=== PATIENT | male | born 1940 | race Caucasian/White ===

== ENCOUNTER 2018-02-04 06:24 | Day surgery (SDC) | payer MEDICARE, BC, SELFPAY ==
[2018-02-04 06:45] VITALS: BP 135/64; PULSE 65; RESP 16; TEMP 36.5; O2SAT 97
[2018-02-04] MEDS: Lidocaine 2% Pres-Free 5 ML VIAL 10 ML (07:31)
--- NOTE | 2018-02-04 07:52 | W.PM.DSUDISC ---
Discharge Plan Disposition Patient Disposition: HOME Condition: Improving Discharge Details Attending Provider: Armani Durham Primary Care Provider: Preston Gonzalez Home Meds and New Rx's Prescriptions: No Action No Known Home Meds RF: 0 Discharge Instructions Additional Instructions: Keep your right hand elevated above heart level as needed to help control pain and swelling. Exercise your thumb as comfort allows. Expect a small amount of bloody drainage on the gauze bandage. For showering tomorrow, cover your gauze bandage with a plastic bag and a rubber band about the wrist to keep it dry. On 02/06/18, you may remove all of your bandages and get your stitch and incision wet in the shower with soap and water. Gently pat the stitch dry and cover it with a bandaid. Resume normal activity as tolerated covering the wound with a glove if you are working in the dirt,or working with grease fo oil. Activity:: Activity as Tolerated Remove Dressings/Wound Care:: 48 hours Diet:: As Tolerated Discharge Orders Discharge Orders: Discharge Order (Routine); Ordered 02/04/18 Ordered By: Armani Durham
--- NOTE | 2018-02-04 08:00 | W.PM.DSUDISC ---
Discharge Plan Disposition Patient Disposition: HOME Condition: Improving Discharge Details Attending Provider: Armani Durham Primary Care Provider: Preston Gonzalez Home Meds and New Rx's Prescriptions: No Action No Known Home Meds RF: 0 Discharge Instructions Additional Instructions: Keep your right hand elevated above heart level as needed to help control pain and swelling. Exercise your thumb as comfort allows. Expect a small amount of bloody drainage on the gauze bandage. For showering tomorrow, cover your gauze bandage with a plastic bag and a rubber band about the wrist to keep it dry. On 02/06/18, you may remove all of your bandages and get your stitch and incision wet in the shower with soap and water. Gently pat the stitch dry and cover it with a bandaid. Resume normal activity as tolerated covering the wound with a glove if you are working in the dirt,or working with grease fo oil. Stand Alone Forms: Ines Alejandro (DSU) Activity:: Activity as Tolerated Remove Dressings/Wound Care:: 48 hours Diet:: As Tolerated Discharge Orders Discharge Orders: Discharge Order (Routine); Ordered 02/04/18 Ordered By: Armani Durham Discharge Data Discharge Date/Time-TO BE ENTERED AT DEPARTURE: 02/04/18 08:12 Discharge Comment: Home
--- NOTE | 2018-02-04 08:57 | ROE_ITS ---
REPORT OF OPERATIVE PROCEDURE DATE OF SURGERY February 04, 2018 PREOPERATIVE DIAGNOSIS Trigger thumb, right upper extremity. POSTOPERATIVE DIAGNOSIS Trigger thumb, right upper extremity. PROCEDURE Release A1 leo, right thumb. SURGEON Armani Durham M.D. OPERATIONS DIRECTOR Nurse. ANESTHETIC Anesthetic is 2% lidocaine plain. PREP ChloraPrep. 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 This has been disabling to him. He has had previous trigger thumb and carpal tunnel surgery on his left hand. I kelsey ve reviewed the planned operative procedure with the patient and his in the Day Surgery holding area. I marked his thumb with a marker. He understood and wished to proceed. DESCRIPTION OF PROCEDURE The patient was taken to the Operating Suite and his right upper extremity was prepped and draped in a sterile fashion with ChloraPrep. Time-out was instituted. Then, 2% lidocaine was used to create an anesthetic wheal over the proposed incision site over the flexor pollicis longus tendon near the MCP joint. After ensuring complete anesthesia to the tip of the thumb, I made a transverse incision, 1/4 inch in length. Using Loupe magnification, and blunt dissection, the FPL tendon was identified. The n eurovascular bundles were retracted to the radial and ulnar side of the FPL. A longitudinal slit was made in the A1 tendon sheath. This was elongated with Littler scissors. I then had the patient flex a nd extend his thumb, which he could do so fully without any triggering or catching. The wound was irr igated with sterile saline. The skin was closed with a single suture of E4-0 Ethilon in a horizontal mattress. The wound was dressed with Xeroform gauze, 4x4s, gauze and a 2-inch confirming gauze bandag e. The patient was taken to the Out Patient Recovery Room in satisfactory condition, tolerating the proc edure well.
== END 2018-02-04 08:12 | disposition home or self-care (01) ==
PROVIDERS: PCP Internal Medicine; Visit Provider Orthopaedic Surgery
PROC: (CPT 26055; principal; 2018-02-04 07:30)
DX: M65.311 Trigger thumb, right thumb (principal)
CPT/HCPCS: 26055

== ENCOUNTER → 2018-02-04 11:59 | Outpatient (BNVA) | payer MEDICARE, BC, SELFPAY ==
--- NOTE | 2018-03-23 11:10 | W.PM.DS.N ---
Discharge Plan Discharge Details Reason For Visit: SURGER Attending Provider: Armani Durham Primary Care Provider: Preston Gonzalez Home Meds and New Rx's Prescriptions: No Action No Known Home Meds RF: 0 PFSH Surgical History Open Carpal Tunnel release (04/19/15) Trigger Finger release (04/19/15)
--- NOTE | 2018-03-24 08:46 | PDOC.DSDIS_ITS ---
Discharge Plan Discharge Details Reason For Visit: SURGER Attending Provider: Armani Durham Primary Care Provider: Preston Gonzalez Home Meds and New Rx's Prescriptions: No Action No Known Home Meds RF: 0
== END ==
PROVIDERS: PCP Internal Medicine; Referring Provider Internal Medicine; Visit Provider Orthopaedic Surgery
DX: R69 Illness, unspecified (principal)
CPT/HCPCS: NC

== ENCOUNTER → 2018-02-10 10:26 | Outpatient (BNVA) | payer MEDICARE, BC, SELFPAY | PROVIDERS: PCP Internal Medicine; Referring Provider Internal Medicine; Visit Provider Orthopaedic Surgery | DX: M65.311 Trigger thumb, right thumb (principal); Z47.89 Encounter for other orthopedic aftercare ==

== ENCOUNTER 2019-07-10 11:28 | Outpatient (CLI) | payer MEDICARE, BC, SELFPAY ==
--- NOTE | 2019-07-10 10:45 | DI.RAD_ITS ---
EXAM: XR WRIST RT COMPLETE INDICATION: eval R wrist pain. COMPARISON: No exams were available for comparison TECHNIQUE: 2D digital imaging was performed. FINDINGS: Four views including carpal tunnel view were performed. Subchondral cysts are seen in the distal ulna and pisiform and triquetrum. There is some soft tissue swelling medially. Degenerative changes are s een at the 1st carpal metacarpal joint. The hook of the hamate and pisiform are unremarkable on the c arpal tunnel view. IMPRESSION: Degenerative changes and soft tissue swelling. DATA REPOSITORY: RADIATION DOSE DELIVERED:
== END 2019-07-10 11:48 ==
PROVIDERS: PCP Internal Medicine; Referring Provider Internal Medicine; Visit Provider Student in an Organized Health Care Education/Training Program
DX: M25.531 Pain in right wrist (principal); M79.89 Other specified soft tissue disorders; M18.11 Unilateral primary osteoarthritis of first carpometacarpal joint, right hand; M18.12 Unilateral primary osteoarthritis of first carpometacarpal joint, left hand; M19.031 Primary osteoarthritis, right wrist
CPT/HCPCS: 99214; 73110; L3908

== ENCOUNTER 2019-08-23 10:32 | Outpatient (REF) | payer MEDICARE, BC, SELFPAY ==
[2019-08-23 21:45] LABS: Anion Gap 8.9 mmol/L (3-11); BUN 21 mg/dL (7-18); CO2 27.1 mmol/L (21.0-32.0); CREATININE 1.11 mg/dL (0.70-1.30); Calcium 8.9 mg/dL (8.5-10.1); Chloride 104 mmol/L (98-107); Glucose 112 mg/dL (74-106); Potassium 4.6 mmol/L (3.5-5.1); Sodium 140 mmol/L (136-145); Uric Acid 6.7 mg/dL (3.5-7.2)
[2019-08-23 22:33] LABS: ESR 9 mm/hr (1-20)
== END 2019-08-23 10:52 ==
LOC: NCHCN 10:32
PROVIDERS: PCP Internal Medicine; Visit Provider Physician Assistant
DX: M13.80 Other specified arthritis, unspecified site (principal)
CPT/HCPCS: 80048; 85652; 84550

== ENCOUNTER 2019-11-20 13:43 | Outpatient (REF) | payer MEDICARE, BC, SELFPAY ==
[2019-11-20 21:22] LABS: HCT 43.7 % (40.0-50.0); HGB 15.1 g/dL (13.5-17.5); Mean Corp. HGB Concentration 34.6 g/dL (32.0-36.0); Mean Corpuscular Hemoglobin 32.8 pg (27.0-33.0); Mean Corpuscular Volume 94.8 fL (80-95); Mean Platelet Volume 9.9 fL (8.0-11.0); Platelet Count 319 x1000/uL (130-400); RBC 4.61 m/cumm (4.50-6.00); RBC Distribution Width 12.4 % (11.8-14.1); White Blood Cell Count 8.55 k/cumm (4.4-10.8)
[2019-11-20 22:03] LABS: ESR 12 mm/hr (1-20)
[2019-11-21 00:06] LABS: ALT 19 U/L (16-63); AST 12 U/L (15-37); Albumin 3.9 g/dL (3.4-5.0); Alkaline Phosphatase 68 U/L (46-116); Anion Gap 9.2 mmol/L (3-11); BUN 17 mg/dL (7-18); Bilirubin, Total 0.7 mg/dL (0.2-1.0); C-Reactive Protein 0.72 mg/dL (0.0-0.3); CO2 25.8 mmol/L (21.0-32.0); CREATININE 1.01 mg/dL (0.70-1.30); Calcium 8.8 mg/dL (8.5-10.1); Chloride 104 mmol/L (98-107); FREE T4 0.91 ng/dL (0.76-1.46); Glucose 106 mg/dL (74-106); Potassium 4.3 mmol/L (3.5-5.1); Sodium 139 mmol/L (136-145); Total Protein 6.6 g/dL (6.4-8.2); Uric Acid 6.7 mg/dL (3.5-7.2)
[2019-11-21 16:45] LABS: Rheumatoid Factor <8.6 IU/mL (<12.0)
[2019-11-22 09:48] LABS: Cyclic Citrullinated Peptide <2.5 U/mL (<5.0)
== END 2019-11-20 14:03 ==
LOC: NCHCN 13:43
PROVIDERS: PCP Internal Medicine; Visit Provider Internal Medicine
DX: R53.83 Other fatigue (principal); M08.09 Unspecified juvenile rheumatoid arthritis, multiple sites; R68.89 Other general symptoms and signs; Z72.9 Problem related to lifestyle, unspecified
CPT/HCPCS: 80053; 85027; 85652; 86200; 84439; 84443; 84550; 86140; 86431

== ENCOUNTER 2021-07-14 18:26 | Outpatient (REF) | payer MEDICARE, SELFPAY ==
[2021-07-14 15:12] LABS: HCT 44.9 % (40.0-50.0); HGB 15.1 g/dL (13.5-17.5); MCH 32.2 pg (27.0-33.0); MCHC 33.6 % (32.0-36.0); MCV 95.7 fL (80-95); Platelet Count 267 10^3/uL (130-400); RBC 4.69 10^6/uL (4.36-5.78); RDW 11.9 % (11.8-14.1); RDW-SD 41.1 fL; WBC 6.96 10^3/uL (4.4-10.8)
[2021-07-14 15:45] LABS: Anion Gap 10.2 mmol/L (3-11); BUN 21 mg/dL (7-18); CO2 24.8 mmol/L (21.0-32.0); CREATININE 1.1 mg/dL (0.70-1.30); Calcium 8.7 mg/dL (8.5-10.1); Chloride 105 mmol/L (98-107); Glucose 108 mg/dL (74-106); Potassium 4.6 mmol/L (3.5-5.1); Sodium 140 mmol/L (136-145)
== END 2021-07-14 18:27 | disposition home or self-care (01) ==
LOC: NCHCN 18:26
PROVIDERS: PCP Internal Medicine; Visit Provider Family Medicine
DX: M13.80 Other specified arthritis, unspecified site (principal); N52.9 Male erectile dysfunction, unspecified
CPT/HCPCS: 80048; 85027

== ENCOUNTER → 2021-12-12 00:44 | Outpatient (CLI) | payer MEDICARE, SELFPAY ==
--- OUTSIDE RECORDS SUMMARY | 2021-12-12 01:19 | XMS_ITS | Encounter Summary ---
:1940 Demographics Home Phone Preferred Language Unknown Marital Status Unknown Latter-Day Affiliation Unknown Race Unknown Ethnic Group Unknown Author Organization [facility] Address [address] [place] [address] Care Team Providers Name Role Phone Unavailable Primary Care Provider Unavailable Encounter Details Date Type Department Care Team Description 11/20/2019 Lab Requisition [facility] Outr Resulting Lab, Pathology & Laboratory Provider [facility] [address] [place] [address] Social History Tobacco Use Types Packs/Day Years Used Date Never Assessed Sex Assigned at Date Recorded Not on file documented as of this encounter Plan of Treatment Not on filedocumented as of this encounter Procedures Procedure Name Priority Date/Time Associated Diagnosis Comme nts CCP ANTIBODIES Routine 11/20/2019 11:50 Results f or this EDT procedure are i n the results section. RHEUMATOID FACTOR Routine 11/20/2019 11:50 Result s for this EDT procedure are i n the results section. documented in this encounter Results RHEUMATOID FACTOR (11/20/2019 11:50 EDT) Pathologist Sig nature Rheumatoid Factor <8.6 <12.0 IU/mL [facility] Specimen Blood - Venous blood (substance) Performing Organization Address [facility]/ZIP Code Phon e Number [facility] [address] [place] [address] SERVICES CCP ANTIBODIES (11/20/2019 11:50 EDT) Pathologist Sig nature CCP Antibodies <2.5 <5.0 U/mL [facility] ORY SERVICES Specimen Blood - Venous blood (substance) Performing Organization Address City/[facility]/ZIP Code Phon e Number [facility] [address] [place] [address] SERVICES documented in this encounter Visit Diagnoses Not on filedocumented in this encounter
--- OUTSIDE RECORDS SUMMARY | 2021-12-12 01:19 | XMS_ITS | Clinical Summary ---
:1940 Demographics Home Phone Preferred Language Unknown Marital Status Unknown Sabianism Affiliation Unknown Race Unknown Ethnic Group Unknown Author Organization [facility] Address [address] [place] [id number] Care Team Providers Name Role Phone Unavailable Primary Care Provider Unavailable Social History Tobacco Use Types Packs/Day Years Used Date Never Assessed Sex Assigned at Date Recorded Not on file Plan of Treatment Health Maintenance Due Date Last Done Comments Fall Risk Screening 2003
--- OUTSIDE RECORDS SUMMARY | 2021-12-12 01:19 | XMS_ITS | Encounter Summary ---
:1940 Author Organization [facility] [place] [address] Care Team Providers Name Role Phone Preston Gonzalez MD Primary Care Provider Encounter Details Date Type Department Care Team Description 05/21/2010 Office Visit Physical Therapy at [facility] Becki Aldridge [facility] PHYSICAL MEDICINE & REHABILITAT [place], [place] [id number] [place] [address] Preston Blank MD [address] [place] [address] [place] [address] Social History Tobacco Use Types Packs/Day Years Used Date Never Assessed Sex Assigned at Date Recorded Not on file documented as of this encounter Plan of Treatment Not on filedocumented as of this encounter Visit Diagnoses Not on filedocumented in this encounter Care Teams Rn Home Health Relationship Specialty Start Date End Date Preston Gonzalez MD PCP - General 04/28/10 [address] [place] [address] documented as of this encounter
--- OUTSIDE RECORDS SUMMARY | 2021-12-12 01:19 | XMS_ITS | Encounter Summary ---
:1940 Author Organization [facility] [place] [address] Care Team Providers Name Role Phone Preston Gonzalez MD Primary Care Provider Encounter Details Date Type Department Care Team Description 05/21/2010 Office [place] [address] Social History Tobacco Use Types Packs/Day Years Used Date Never Assessed Sex Assigned at Date Recorded Not on file documented as of this encounter Plan of Treatment Not on filedocumented as of this encounter Visit Diagnoses Not on filedocumented in this encounter Care Teams Supervisor Intelligence Analyst Relationship Specialty Start Date End Date Preston Gonzalez MD PCP - General 04/28/10 [address] [place] [address] documented as of this encounter
--- OUTSIDE RECORDS SUMMARY | 2021-12-12 01:19 | XMS_ITS | Clinical Summary ---
:1940 Author Organization [facility] [place] [address] Care Team Providers Name Role Phone Preston Gonzalez MD Primary Care Provider Allergies No known active allergies Medications Medication Sig Dispensed Refills Start Date End Date Status ibuprofen (ADVIL;MOTRIN) 0 05/21/2010 Active 600 mg tablet triamcinolone (KENALOG) APPLY TO RASH ON 6 Active 0.1 % Ointment LEGS TWO TIMES A DAY FOR 14 DAYS Active Problems Problem Noted Date Stasis dermatitis of both legs 05/14/2016 CIS - Entered not Verified 05/14/2010 CIS - R shoulder biceps tendonitis 01/08/2010 CIS - R shoulder RC tear 01/08/2010 Social History Tobacco Use Types Packs/Day Years Used Date Never Smoker Sex Assigned at Date Recorded Not on file Plan of Treatment Health Maintenance Due Date Last Done Comments Covid-19 Vaccine (#1) 1943 Tdap adult 1957 Tetanus vaccine 1957 Zoster vaccine (1 of 2) 1988 Advance Directive 1993 Pneumoccocal Vaccine: 65+ (1 - PCV) 2003 Influenza (Flu) vaccine (1 of 1 - Influenza standard 01/08/2022 series) Insurance Payer Benefit Plan / Subscriber ID Effective Dates Phone Addre ss Type Group MEDICARE MEDICARE PART A [id number]-Rose [phone] [id number] [id number] Care Teams Security System Installer Relationship Specialty Start Date End Date Preston Gonzalez MD PCP - General 04/28/10 [address] [place], [place] [address]
--- OUTSIDE RECORDS SUMMARY | 2021-12-12 01:20 | XMS_ITS | Encounter Summary ---
:1940 Author Organization [facility] [place] [address] Care Team Providers Name Role Phone Preston Gonzalez MD Primary Care Provider Encounter Details Date Type Department Care Team Description 05/12/2010 Office Visit [place] [place] [facility] [place] [place], [facility] [place] [address] [facility] [phone] ORTHOPAEDIC SURG [place], [place] [address] (Wo rk) Social History Tobacco Use Types Packs/Day Years Used Date Never Assessed Sex Assigned at Date Recorded Not on file documented as of this encounter Plan of Treatment Not on filedocumented as of this encounter Visit Diagnoses Not on filedocumented in this encounter Care Teams Automotive Painter Relationship Specialty Start Date End Date Preston Gonzalez MD PCP - General 04/28/10 [address] [place] [address] documented as of this encounter
--- OUTSIDE RECORDS SUMMARY | 2021-12-12 01:20 | XMS_ITS | Encounter Summary ---
:1940 Author Organization [facility] [place] [address] Care Team Providers Name Role Phone Preston Gonzalez MD Primary Care Provider Encounter Details Date Type Department Care Team Description 05/21/2010 Follow-Up Orthopaedics at [facility] Rolf Melara MD [facility] [place] [address] ORTHOPAEDIC SURGERY [phone] [place], [place] [address] (Wo rk) Social History Tobacco Use Types Packs/Day Years Used Date Never Assessed Sex Assigned at Date Recorded Not on file documented as of this encounter Plan of Treatment Not on filedocumented as of this encounter Visit Diagnoses Not on filedocumented in this encounter Care Teams Tool And Die Engineer Relationship Specialty Start Date End Date Preston Gonzalez MD PCP - General 04/28/10 [address] [place] [address] documented as of this encounter
--- NOTE | 2021-12-12 08:16 | DI.RAD_ITS ---
Exam(s) XR FEMUR RT EXAM: XR FEMUR RT CLINICAL HISTORY: PAIN RT THIGH M79.651. TECHNIQUE: 2D digital imaging was performed of the right femur. Four images were obtained. AP and l ateral views were obtained. COMPARISON: No exams were available for comparison FINDINGS: BONES: No acute fracture is present. No bony destructive lesion is seen. There are mild degenerative changes seen at the right hip. The right knee is well maintained. SOFT TISSUE: Atherosclerosis is present. Surgical clips are seen in the pelvis. IMPRESSION: No acute abnormality. DATA REPOSITORY: RADIATION DOSE DELIVERED:
--- NOTE | 2021-12-12 08:17 | DI.RAD_ITS ---
Exam(s) XR LUMBAR SPINE COMPLETE EXAM: XR LUMBAR SPINE COMPLETE CLINICAL HISTORY: PAIN RT THIGH M79.651. TECHNIQUE: 2D digital imaging was performed of the lumbar spine. Five images were obtained. AP, la teral, right oblique, left oblique and L5-S1 spot views were obtained. COMPARISON: No exams were available for comparison FINDINGS: BONES: No fracture or destructive lesion. Endplate osteophytes are seen from L3-4 through L5-S1. Dege nerative changes of the facets are seen at L5-S1. DISKS: There is disc space narrowing at L5-S1. ALIGNMENT: Lumbar spinal alignment is within normal limits. No spondylolysis or spondylolisthesis. SOFT TISSUE: Atherosclerosis is present. 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 DATA REPOSITORY: RADIATION DOSE DELIVERED:
== END ==
PROVIDERS: PCP Internal Medicine; Visit Provider Internal Medicine
DX: M47.817 Spondylosis without myelopathy or radiculopathy, lumbosacral region (principal)
CPT/HCPCS: 73552; 72110

== ENCOUNTER 2022-07-28 09:54 | Outpatient (REF) | payer MEDICARE, SELFPAY ==
--- NOTE | 2022-07-28 09:20 | SKI_PTH ---
PATIENT: Oh Woody LOC: [facility] U#:[id number] AGE/SX: 82/M ROOM: RE07/28/[address]: Anthony Luis : 1940 BED: DIS: 07/28/2022 SPEC #: [id number] RECD: 07/28/22 17:10 STATUS: CRISPIN REQ #: [id number] DAVINA: 07/28/22 09:[address]: Anthony Luis DEPT: Surgical Specimen RECD BY: Izabel Day ENTERED: 07/28/22 17:11 SP TYPE: SKI OTHR DR: Preston Gonzalez Tissues: 1 - SKIN BIOPSY(SHAVE/PUNCH) Procedures: SKIN LEVEL 4 Comments: [id number]
== END 2022-07-28 09:55 | disposition home or self-care (01) ==
LOC: LBN 09:54
PROVIDERS: PCP Internal Medicine; Visit Provider Family Medicine
DX: L82.0 Inflamed seborrheic keratosis (principal)
CPT/HCPCS: 88305

== ENCOUNTER 2022-08-07 03:09 | Outpatient (CLI) | payer MEDICARE, SELFPAY ==
[2022-08-07 07:59] LABS: HCT 46.9 % (40.0-50.0); MCH 32.5 pg (27.0-33.0); MCHC 34.1 % (32.0-36.0); MCV 95 fL (80-95); MPV 9.7 fL (8.0-11.0); Platelet Count 286 10^3/uL (130-400); RBC 4.92 10^6/uL (4.36-5.78); RDW-SD 41.9 fL; WBC 5.59 10^3/uL (4.4-10.8)
[2022-08-07 08:28] LABS: Anion Gap 8.8 mmol/L (3-11); BUN 24 mg/dL (7-18); CO2 27.2 mmol/L (21.0-32.0); CREATININE 1.2 mg/dL (0.70-1.30); Calcium 9.3 mg/dL (8.5-10.1); Chloride 106 mmol/L (98-107); Estimated GFR 59.63 (mL/min/1.73m2); Glucose 107 mg/dL (74-106); Potassium 4.2 mmol/L (3.5-5.1); Sodium 142 mmol/L (136-145)
== END 2022-08-07 03:10 | disposition home or self-care (01) ==
LOC: LBO 03:10
PROVIDERS: PCP Internal Medicine; Visit Provider Internal Medicine
DX: R73.9 Hyperglycemia, unspecified (principal); M19.90 Unspecified osteoarthritis, unspecified site
CPT/HCPCS: 36415; 80048; 85027

== ENCOUNTER 2024-08-02 10:16 | Outpatient (REF) | payer MEDICARE, SELFPAY ==
[2024-08-02 14:42] LABS: Abs Immature Grans 0.01 10^3/uL (0.0-0.06); Absolute Basophil Count 0.04 10^3/uL (0.0-0.2); Absolute Eosinophil Count 0.34 10^3/uL (0.0-0.7); Absolute Lymphocyte Count 1.05 10^3/uL (1.2-3.4); Absolute Monocyte Count 0.92 10^3/uL (0.1-0.8); Basophils % 0.6 %; HCT 45.9 % (40.0-50.0); HGB 15.5 g/dL (13.5-17.5); Immature Grans % 0.1 %; Lymphocytes % 15.5 %; MCH 32.5 pg (27.0-33.0); MCHC 33.8 % (32.0-36.0); MCV 96 fL (80-95); MPV 10.1 fL (8.0-11.0); Monocytes % 13.6 %; Neutrophils % 65.2 %; Platelet Count 294 10^3/uL (130-400); RBC 4.77 10^6/uL (4.36-5.78); RDW 12.2 % (11.8-14.1); RDW-SD 43.3 fL; WBC 6.76 10^3/uL (4.4-10.8)
[2024-08-02 14:54] LABS: Anion Gap 9.3 mmol/L (3-11); BUN 26 mg/dL (7-18); CO2 27.7 mmol/L (21.0-32.0); CREATININE 1.3 mg/dL (0.70-1.30); Calcium 9.3 mg/dL (8.5-10.1); Chloride 105 mmol/L (98-107); Glucose 116 mg/dL (74-106); Potassium 4.4 mmol/L (3.5-5.1); Sodium 142 mmol/L (136-145)
== END 2024-08-02 10:17 | disposition home or self-care (01) ==
LOC: NCHCN 10:16
PROVIDERS: PCP Family Medicine; Visit Provider Family Medicine
DX: N18.2 Chronic kidney disease, stage 2 (mild) (principal)
CPT/HCPCS: 80048; 85025

== ENCOUNTER 2024-09-22 08:31 | Outpatient (CLI) | payer MEDICARE, SELFPAY ==
--- NOTE | 2024-09-22 08:15 | DI.RAD_ITS ---
Exam(s) XR KNEE LT 4V AP,LAT,SABINO,PAT EXAM: XR KNEE LT 4V AP,LAT,SABINO,PAT CLINICAL HISTORY: left knee pain. TECHNIQUE: 2D digital imaging was performed. COMPARISON: No exams were available for comparison FINDINGS: Four views No evidence fracture but there is a joint effusion noted. There is no joint space narrowing. No ost eochondral defects. No osteophytes. No chondrocalcinosis. Vascular calcifications noted in the pop liteal artery. IMPRESSION: No acute osseous findings in the knee. However, there is a small-moderate size joint effusion noted. This may signify the presence of an internal derangement. DATA REPOSITORY: RADIATION DOSE DELIVERED:
== END 2024-09-22 08:32 | disposition home or self-care (01) ==
LOC: DIORS 08:31
PROVIDERS: PCP Family Medicine; Referring Provider Family Medicine; Visit Provider Physician Assistant
DX: M25.562 Pain in left knee (principal)
CPT/HCPCS: 20610; J1010; 73564